=== PATIENT | female | born 1990 | race Caucasian/White ===

== ENCOUNTER 2020-05-01 06:53 | Outpatient (NON) | payer OTHER, SELFPAY ==
[2020-05-02 00:03] LABS: SARS-CoV-2 RNA PCR Positive
== END 2020-05-01 06:54 ==
LOC: ANHCOVIDDT 07:00
PROVIDERS: PCP Nurse Practitioner Family; Visit Provider Family Medicine
DX: U07.1 COVID-19 (principal)
CPT/HCPCS: 87635; C9803; U0003

== ENCOUNTER → 2021-03-12 03:39 | Outpatient (CLI) | payer OTHER, SELFPAY ==
[2021-03-13 01:26] LABS: SARS-CoV-2 RNA PCR Negative
== END ==
PROVIDERS: PCP Nurse Practitioner Family; Visit Provider Pediatrics
DX: R68.89 Other general symptoms and signs (principal); Z20.822 Contact with and (suspected) exposure to COVID-19
CPT/HCPCS: C9803; U0003; U0005

== ENCOUNTER → 2021-04-13 00:53 | Outpatient (CLI) | payer OTHER, SELFPAY ==
[2021-04-13 18:23] LABS: SARS-CoV-2 RNA PCR Negative
== END ==
PROVIDERS: PCP Nurse Practitioner Family; Visit Provider Pediatrics
DX: R68.89 Other general symptoms and signs (principal); Z20.822 Contact with and (suspected) exposure to COVID-19
CPT/HCPCS: C9803; U0003; U0005

== ENCOUNTER 2021-04-30 11:45 | Outpatient (CLI) | payer OTHER, SELFPAY ==
[2021-04-30 12:03] LABS: Hematocrit 39.1 % (37.0-47.0); Hemoglobin 13.5 g/dL (12.0-15.0); Mean Corpuscular HGB Conc 34.5 g/dl (32-36); Mean Corpuscular Hemoglobin 31.8 pg (26-34); Mean Corpuscular Volume 92.2 fl (80-100); Mean Platelet Volume 9.7 fl (7.4-10.4); Platelet Count Result 293 k/mm3 (150-375); Red Blood Count 4.24 M/mm3 (4.2-5.4); Red Cell Distribution Width 11.7 % (11.5-14.5); White Blood Count 10.3 K/mm3 (4.5-10.0)
[2021-04-30 12:17] LABS: Alanine Aminotransferase 23 U/L (4-35); Albumin Level 4.3 g/dL (3.5-5.1); Alkaline Phosphatase 69 U/L (38-126); Anion Gap 8 mmol/L (8-16); Aspartate Amino Transferase 25 U/L (14-36); Bilirubin,Total 0.4 mg/dL (0.2-1.3); Blood Urea Nitrogen 13 mg/dL (7-17); Calcium 8.9 mg/dL (8.4-10.2); Carbon Dioxide 25 mmol/L (22-30); Chloride 103 mmol/L (98-107); Estimated Glomerular Filt Rate > 60; Glucose 81 mg/dL (65-110); Potassium 4.6 mmol/L (3.4-5.0); Sodium 136 mmol/L (137-145)
[2021-04-30 12:44] LABS: Band Neutrophils Percent 1 % (0-6); Eosinophils Absolute Manual 0.51 K/mm3 (0.02-0.5); Eosinophils Percent Manual 5 % (0-4); Monocytes Percent Manual 2 % (3-9); Neutrophils Absolute Manual 6.07 K/mm3 (1.7-7.2); Neutrophils Percent Manual 58 % (46-73); Total Cells Counted 100
[2021-04-30 12:45] LABS: Atypical Lymphocytes Present; Platelet Estimate Adequate (Adequate)
== END 2021-04-30 11:46 | disposition home or self-care (01) ==
LOC: ANHLAB 11:47
PROVIDERS: PCP Nurse Practitioner Family; Visit Provider Nurse Practitioner Family
DX: L40.1 Generalized pustular psoriasis (principal)
CPT/HCPCS: 36415; 80053; 85025